=== PATIENT | female | born 1990 ===

== ENCOUNTER 2024-05-05 10:00 | Day surgery (SDC) | payer OTHER ==
[2024-04-28 08:24] VITALS: BP 113/77
[2024-04-28 08:29] LABS: HEMATOCRIT 31.3 % (36.0-45.00); HEMOGLOBIN 10.2 g/dL (12.0-15.00); MEAN CELL VOLUME 73.6 fL (80.00-100.00); MEAN CORPUSCULAR HEMOGLOBIN 23.9 pg (27.00-32.0); MEAN CORPUSCULAR HGB CONC 32.7 g/dl (32.0-36.0); PLATELET COUNT 304 K/uL (150-450); RED BLOOD COUNT 4.26 M/uL (4.00-6.00); RED CELL DISTRIBUTION WIDTH 15.2 % (11.5-14.5)
[2024-04-28 08:39] LABS: URINE APPEARANCE Clear; URINE BILIRRUBIN Negative (NEGATIVE); URINE BLOOD Negative; URINE COLOR Yellow; URINE GLUCOSE Negative (NEGATIVE); URINE KETONE Negative (NEGATIVE); URINE LEUKOCYTE Moderate; URINE NITRATE Negative; URINE PROTEIN Negative (NEGATIVE); URINE UROBILINOGEN 0.2 E.U./dl
[2024-04-28 08:40] LABS: URINE BACTERIA 959.4 uL (0.0-1933); URINE EPITHELIAL CELLS 19.6 uL (0.0-38.8); URINE WBC 72.9 uL (0.0-23.2)
[2024-04-28 08:51] LABS: INR 0.97; PARTIAL THROMBOPLASTIN TIME 27.3 SECONDS (22.0-34.0); PROTHROMBIN TIME 10.6 SECONDS (9.0-11.5)
[2024-04-28 10:12] LABS: ALBUMIN 3.9 gm/dL (3.4-5.0); BILIRUBIN TOTAL 1.14 mg/dL (0.3-1.2); CREATININE SERUM 0.62 mg/dL (0.55-1.02); GFR 109.54; GLOBULINA 3.3 G/DL (2.4-3.5); POTASSIUM 4.06 mEq/L (3.5-5.1); TOTAL PROTEIN 7.2 gm/dL (6.4-8.2)
[~2024-05-05] VITALS: Ht 162.6 cm; Wt 75.7 kg
[~2024-05-05 10:00] MED LIST: SYNTHROID75 MCG PO
[2024-05-05] MEDS ORDERED: POVIDONE-IODINE 118 ML BOTT TOP ONE (17:26)
== END 2024-05-06 00:20 | disposition home or self-care (01) ==
LOC: U 10:00 → CIR.AMB 10:00
PROVIDERS: ATTEND Obstetrics & Gynecology Obstetrics
DX: D06.9 Carcinoma in situ of cervix, unspecified (principal); J45.909 Unspecified asthma, uncomplicated; D64.9 Anemia, unspecified